=== PATIENT | female | born 1955 ===

== ENCOUNTER 2017-02-17 10:59 | Emergency (ER) | payer OTHER ==
--- NOTE | 2017-02-17 12:00 | C.PDOC ---
History Of Present Illness 61 yo female c/o subjective fever, productive cough, congestion for 3 days. (+) sore throat. Notes she took Mucinex last night. Spouse with same symptoms. No SOB, no chest pain, no difficultly swallowing. Time Seen by Provider: 02/17/17 11:21 Chief Complaint (Nursing): Cough, Cold, Congestion History Per: Patient, Family History/Exam Limitations: no limitations Onset/Duration Of Symptoms: Days Location Of Pain: Ear(s), Throat Associated Symptoms: Fever, Chills, Sore Throat, Cough, Sputum, Nasal Congestion Past Medical History Vital Signs: Last Vital Signs Temp 99.2 F 02/17/17 11:09 Pulse 87 02/17/17 11:09 Resp 19 02/17/17 11:09 BP 129/71 02/17/17 11:09 Pulse Ox 97 02/17/17 12:00 - Medical History PMH: No Chronic Diseases Family History: States: Unknown Family Hx - Social History Hx Alcohol Use: No Hx Substance Use: No - Immunization History Hx Tetanus Toxoid Vaccination: No Hx Influenza Vaccination: No Hx Pneumococcal Vaccination: No Review Of Systems Except As Marked, All Systems Reviewed And Found Negative. Constitutional: Positive for: Fever, Chills ENT: Positive for: Ear Pain, Nose Congestion, Throat Pain Respiratory: Positive for: Cough, Sputum Physical Exam - Physical Exam Appears: Well, Non-toxic, No Acute Distress Skin: Normal Color, Warm, Dry Head: Atraumatic, Normacephalic Eye(s): bilateral: Normal Inspection, EOMI Ear(s): Bilateral: Normal Nose: Normal Oral Mucosa: Moist Throat: Normal, No Erythema, No Exudate, No Drooling Neck: Normal, Normal ROM, Supple Chest: Symmetrical Cardiovascular: Rhythm Regular Respiratory: Normal Breath Sounds, No Accessory Muscle Use, Other (persistent productive cough) Gastrointestinal/Abdominal: Normal Exam, Soft, No Tenderness Back: Normal Inspection Extremity: Normal ROM Neurological/Psych: Oriented x3, Normal Speech ED Course And Treatment O2 Sat by Pulse Oximetry: 97 Progress Note: Offered CXR, to r/o PNA, pt declined. Instructed to follow up with PMD in 1-2 days or return to ER if symtpoms persist or worsen. Disposition - Disposition Disposition: HOME/ ROUTINE Disposition Time: 11:57 Condition: STABLE Additional Instructions: Vaya a mercado mdico o la clnica en 2-5 dave sin falta, para mas evaluacin. [place] los medicamentos anaya indicado. Volver a la brennen de emergencia en cualquier momento si los sntomas persisten o empeoran. Prescriptions: Albuterol HFA [Ventolin HFA 90 mcg/actuation (8 g)] 2 puff IH [id number] #1 puff Azithromycin [Zithromax] 250 mg PO DAILY #6 tab Guaifen/Dextromethorphan/PE [Mucinex Fast-Max Congest-Cough] 1 each PO Q6 #20 tablet Instructions: Acute Bronchitis (ED) Forms: [employer] (Slovak) Print Language: SALVADOREAN - Clinical Impression Clinical Impression: Bronchitis
[2017-02-17 12:18] VITALS: BP 134/79; PULSE 84; RESP 20; TEMP 99; O2SAT 95
== END 2017-02-17 12:18 | disposition home or self-care (01) ==
LOC: C.ER 10:59
DX: J40 Bronchitis, not specified as acute or chronic (principal)